=== PATIENT | female | born 1980 | race Caucasian/White ===

== ENCOUNTER 2019-11-01 17:14 | Inpatient (IN) | payer OTHER ==
[~2019-11-01] VITALS: Ht 172.7 cm; Wt 113.1 kg
[2019-11-01 19:04] LABS: BASOPHILS % (AUTO) 0.4 % (0.0-2.0); EOSINOPHILS % (AUTO) 0.4 % (1.0-6.0); HEMATOCRIT 38.6 % (36-46); HEMOGLOBIN 12.8 g/dL (12.0-16.0); MEAN CORPUSCULAR HGB CONC 33.1 G/dL (31.0-37.0); MEAN CORPUSCULAR VOLUME 82 fL (80-100); MONOCYTES # (AUTO) 0.8 K/uL (0.1-1.0); MONOCYTES % (AUTO) 7.5 % (2.0-9.0); NEUTROPHILS # (AUTO) 7.5 K/uL (1.8-7.7); NEUTROPHILS % (AUTO) 72.7 % (40.0-70.0); PLATELET COUNT (AUTO) 281 K/uL (150-450); RED BLOOD CELL COUNT(AUTO) 4.73 MIL/uL (4.00-5.20); RED CELL DISTRIBUTION WIDTH 14.3 % (11.5-14.5)
[2019-11-01 19:20] LABS: ANION GAP 11 mmol/L (8-16); CALCIUM, TOTAL 9.1 mg/dL (8.8-10.5); CARBON DIOXIDE 28 mmol/L (22-29); CHLORIDE 99 mmol/L (98-107); CREATININE 0.94 mg/dL (0.60-1.30); GLOMERULAR FILTR. RATE CALC > 60 mL/min (>60); GLUCOSE,RANDOM 105 mg/dL (70-110); POTASSIUM 3.3 mmol/L (3.5-5.1); SODIUM SERUM 138 mmol/L (136-145); UREA NITROGEN, BLOOD 12 mg/dL (7-18)
[2019-11-01 19:31] LABS: ALANINE AMINOTRANSFERASE 30 U/L (12-78); ALBUMIN 3.9 g/dL (3.4-5.0); ALKALINE PHOSPHATASE 83 U/L (46-116); ASPARTATE AMINOTRANSFERASE 25 U/L (15-37); BILIRUBIN,TOTAL 0.7 mg/dL (0.1-1.0); HCG,QUANTITATIVE < 1 mIU/mL (0-6); TOTAL PROTEIN, SERUM 8.4 g/dL (6.4-8.2)
[2019-11-01] MEDS ORDERED: ZOLPIDEM TARTRATE 10 MG TABLET PO PRN (19:45)
[2019-11-01] MEDS ORDERED: OLANZapine 5 MG RAPDIS TABLET PO PRN (19:45)
[2019-11-01] MEDS ORDERED: LORazepam 2 MG TABLET PO PRN (19:45)
[2019-11-01] MEDS ORDERED: POTASSIUM CHLORIDE 20 MEQ ER TABLET PO ONE (20:00)
[2019-11-01 21:47] LABS: APPEARANCE,URINE CLOUDY (CLEAR); GLUCOSE, URINE (UA) NEGATIVE (NEGATIVE); KETONES,URINE 40 mg/dL (NEGATIVE); LEUKOCYTE ESTERASE ,URINE NEGATIVE (NEGATIVE); NITRATE,URINE NEGATIVE (NEGATIVE); OCCULT BLOOD,URINE LARGE (NEGATIVE); PH,URINE 5.5 (5.0-8.0); PROTEIN,URINE TRACE (NEGATIVE)
[2019-11-01 21:53] LABS: AMPHET/METH SCREEN,URINE NEGATIVE (NEGATIVE); BARBITURATE SCREEN, URINE NEGATIVE (NEGATIVE); BENZODIAZEPINES SCREEN,URINE NEGATIVE (NEGATIVE); CANNABINOID SCREEN,URINE NEGATIVE (NEGATIVE); COCAINE SCREEN,URINE NEGATIVE (NEGATIVE); METHADONE SCREEN, URINE NEGATIVE (NEGATIVE); OPIATE SCREEN,URINE NEGATIVE (NEGATIVE)
[2019-11-01 21:55] LABS: PHENCYCLIDINE SCREEN,URINE NEGATIVE (NEGATIVE)
[2019-11-01 22:07] LABS: BILIRUBIN,URINE PRELIM. POSITIVE (NEGATIVE)
[2019-11-01 22:15] LABS: BACTERIA,URINE Few /HPF (None Seen); SQUAMOUS EPITHELIAL CELL,UR Few /LPF (None Seen); WBC,URINE 0-2 /HPF (0-5)
[2019-11-01] MEDS ORDERED: ACETAMINOPHEN 325 MG TABLET PO PRN (22:15)
[2019-11-01] MEDS ORDERED: 0.9% SODIUM CHLORIDE 10 ML SYRINGE IVP PRN (22:15)
[2019-11-01] MEDS ORDERED: ONDANSETRON HCL 4 MG/2 ML VIAL IVP PRN (22:15)
[2019-11-02 01:43] VITALS: BP 125/66
[2019-11-02 04:30] VITALS: BP 128/68
[2019-11-02 08:30] VITALS: BP 122/64
[2019-11-02] MEDS: BuPROPion HCL 150 MG SR TABLET PO SCH (10:56)
[2019-11-02] MEDS: HydrOXYzine PAMOATE 50 MG CAPSULE PO PRN ×2 (11:38→15:24)
[2019-11-02] MEDS ORDERED: ACETAMINOPHEN 325 MG TABLET PO PRN (12:15)
[2019-11-02 17:11] VITALS: BP 111/71
[2019-11-02 20:07] VITALS: BP 100/67
[2019-11-03 03:43] VITALS: BP 113/53
[2019-11-03] MEDS: HydrOXYzine PAMOATE 50 MG CAPSULE PO PRN ×2 (07:47→12:39)
[2019-11-03] MEDS: BuPROPion HCL 150 MG SR TABLET PO SCH (07:47)
[2019-11-03 08:03] VITALS: BP 109/68
== END 2019-11-03 14:00 | DRG 722 ==
LOC: EMS 17:15 → 6N 19:31
PROVIDERS: ADMIT Hospitalist; ATTEND Hospitalist
DX: R50.9 Fever, unspecified (principal); F33.2 Major depressive disorder, recurrent severe without psychotic features; R45.851 Suicidal ideations; Z20.828 Contact with and (suspected) exposure to other viral communicable diseases
CPT/HCPCS: G0480; 36415-L1; 36415-TC; 71045-TC; 87635; U0003-CS

== ENCOUNTER 2019-11-02 12:20 | Inpatient (IN) | payer MEDICAID ==
[2019-11-03] MEDS ORDERED: HydrOXYzine PAMOATE 50 MG CAPSULE PO PRN (11:45)
[2019-11-03 14:42] VITALS: BP 142/92
[2019-11-03 14:44] VITALS: BP 142/92
[2019-11-03] MEDS ORDERED: PNEUMOCOCCAL VACCINE POLYVALENT 0.5 ML VIAL [PPSV23] IM ONE (15:45)
[2019-11-03 16:38] VITALS: BP 129/77
[2019-11-03] MEDS: LORazepam 2 MG TABLET PO PRN (17:56)
[2019-11-03] MEDS: HALOPERIDOL 5 MG TABLET PO PRN (17:56)
[2019-11-04] MEDS ORDERED: NICOTINE 14 MG/24 HOUR PATCH TD PRN (06:45)
[2019-11-04] MEDS ORDERED: IBUPROFEN 400 MG TABLET PO PRN (06:45)
[2019-11-04] MEDS ORDERED: LOPERAMIDE HCL 2 MG CAPSULE PO PRN (06:45)
[2019-11-04] MEDS ORDERED: GuaiFENesin/D-METHORPHAN [SUGAR-FREE] 200-20MG/10 ML SYRUP UDCUP PO PRN (06:45)
[2019-11-04] MEDS ORDERED: ONDANSETRON HCL 4 MG TABLET PO PRN (06:45)
[2019-11-04] MEDS ORDERED: ACETAMINOPHEN 325 MG TABLET PO PRN (06:45)
[2019-11-04] MEDS ORDERED: CloNIDine HCL 0.1 MG TABLET PO PRN (06:45)
[2019-11-04] MEDS ORDERED: MAGNESIUM HYDROXIDE SUSPENSION 30 ML UDCUP PO PRN (06:45)
[2019-11-04] MEDS ORDERED: DOCUSATE SODIUM 100 MG CAPSULE PO PRN (06:45)
[2019-11-04] MEDS ORDERED: ALBUTEROL SULFATE HFA 90 MCG/PUFF 8 GM INHALER IH PRN (06:45)
[2019-11-04] MEDS ORDERED: PETROLATUM,WHITE 28 GM JELLY TP PRN (06:45)
[2019-11-04] MEDS ORDERED: MAG HYDROX/AL HYDROX/SIMETH ES 30 ML SUSPENSION UDCUP PO PRN (06:45)
[2019-11-04 08:00] VITALS: BP 118/72
[2019-11-04] MEDS: BuPROPion HCL 150 MG SR TABLET PO SCH (08:31)
[2019-11-04] MEDS: LORazepam 2 MG TABLET PO PRN ×2 (08:31→14:00)
[2019-11-04] MEDS: HALOPERIDOL 5 MG TABLET PO PRN ×2 (08:31→14:00)
[2019-11-04] MEDS ORDERED: POTASSIUM CHLORIDE 20 MEQ ER TABLET PO ONE (10:00)
[2019-11-04 16:00] VITALS: BP 104/66
[2019-11-05 08:00] VITALS: BP 126/70
[2019-11-05] MEDS: BuPROPion HCL 150 MG SR TABLET PO SCH (08:52)
[2019-11-05] MEDS ORDERED: POTASSIUM CHLORIDE 20 MEQ ER TABLET PO ONE (09:15)
[2019-11-05] MEDS: HALOPERIDOL 5 MG TABLET PO PRN (14:27)
[2019-11-05] MEDS: LORazepam 2 MG TABLET PO PRN (14:27)
[2019-11-05 16:59] VITALS: BP 102/60
[2019-11-06 08:03] LABS: POTASSIUM 3.3 mmol/L (3.5-5.1)
[2019-11-06] MEDS: BuPROPion HCL 150 MG SR TABLET PO SCH (09:02)
[2019-11-06 09:59] VITALS: BP 114/55
[2019-11-06 10:31] LABS: MAGNESIUM 1.2 mg/dL (1.80-2.40)
[2019-11-06] MEDS: HALOPERIDOL 5 MG TABLET PO PRN ×2 (12:22→17:55)
[2019-11-06] MEDS: LORazepam 2 MG TABLET PO PRN ×2 (12:22→17:55)
[2019-11-06] MEDS: MAGNESIUM OXIDE 400 MG TABLET PO SCH ×2 (13:58→16:22)
[2019-11-06 16:34] VITALS: BP 102/73
[2019-11-06] MEDS ORDERED: POTASSIUM CHLORIDE 10% 40 MEQ/30 ML LIQUID UDCUP PO ONE (21:30)
[2019-11-07 08:45] VITALS: BP 110/67
[2019-11-07] MEDS: BuPROPion HCL 150 MG SR TABLET PO SCH (09:19)
[2019-11-07] MEDS: MAGNESIUM OXIDE 400 MG TABLET PO SCH ×3 (09:19→17:46)
[2019-11-07 09:52] LABS: POTASSIUM 3.3 mmol/L (3.5-5.1)
[2019-11-07 10:29] LABS: MAGNESIUM 1.2 mg/dL (1.80-2.40)
[2019-11-07] MEDS ORDERED: POTASSIUM CHLORIDE 20 MEQ ER TABLET PO ONE (10:45)
[2019-11-07 16:00] VITALS: BP 100/60
[2019-11-07] MEDS: LORazepam 2 MG TABLET PO PRN (17:46)
[2019-11-07] MEDS: HALOPERIDOL 5 MG TABLET PO PRN (17:46)
[2019-11-08 07:53] LABS: MAGNESIUM 1.4 mg/dL (1.80-2.40); POTASSIUM 3.4 mmol/L (3.5-5.1)
[2019-11-08] MEDS: BuPROPion HCL 150 MG SR TABLET PO SCH (09:05)
[2019-11-08] MEDS: MAGNESIUM OXIDE 400 MG TABLET PO SCH ×3 (09:05→16:24)
[2019-11-08 12:31] VITALS: BP 141/79
[2019-11-08] MEDS ORDERED: POTASSIUM CHLORIDE 20 MEQ ER TABLET PO ONE (13:00)
[2019-11-08 16:12] VITALS: BP 90/65
[2019-11-08] MEDS: LORazepam 2 MG TABLET PO PRN (17:10)
[2019-11-08] MEDS: HALOPERIDOL 5 MG TABLET PO PRN (18:04)
[2019-11-08] MEDS: ZOLPIDEM TARTRATE 10 MG TABLET PO PRN (21:02)
[2019-11-09 02:09] VITALS: BP 121/85
[2019-11-09] MEDS: BuPROPion HCL 150 MG SR TABLET PO SCH (08:35)
[2019-11-09] MEDS: MULTIVITAMINS WITH MINERALS, THERAPEUTIC TABLET PO SCH (08:36)
[2019-11-09] MEDS: MAGNESIUM OXIDE 400 MG TABLET PO SCH ×3 (08:36→16:27)
[2019-11-09 08:56] VITALS: BP 106/73
[2019-11-09] MEDS: LORazepam 2 MG TABLET PO PRN (15:49)
[2019-11-09] MEDS: HALOPERIDOL 5 MG TABLET PO PRN (15:49)
[2019-11-09 16:30] VITALS: BP 107/69
[2019-11-09] MEDS: ZOLPIDEM TARTRATE 10 MG TABLET PO PRN (21:06)
[2019-11-10] MEDS: MULTIVITAMINS WITH MINERALS, THERAPEUTIC TABLET PO SCH (07:58)
[2019-11-10] MEDS: BuPROPion HCL 150 MG SR TABLET PO SCH (07:58)
[2019-11-10] MEDS: MAGNESIUM OXIDE 400 MG TABLET PO SCH ×3 (07:58→16:15)
[2019-11-10 09:41] VITALS: BP 134/87
[2019-11-10 13:47] LABS: MAGNESIUM 1.7 mg/dL (1.80-2.40); PHOSPHORUS 3.2 mg/dL (2.5-4.9); POTASSIUM 3.8 mmol/L (3.5-5.1)
[2019-11-10 16:01] VITALS: BP 108/71
[2019-11-10] MEDS: LORazepam 2 MG TABLET PO PRN (17:46)
[2019-11-10] MEDS: HALOPERIDOL 5 MG TABLET PO PRN (17:46)
[2019-11-11 07:47] LABS: MAGNESIUM 1.6 mg/dL (1.80-2.40); POTASSIUM 3.8 mmol/L (3.5-5.1)
[2019-11-11 08:00] VITALS: BP 108/84
[2019-11-11] MEDS: MULTIVITAMINS WITH MINERALS, THERAPEUTIC TABLET PO SCH (08:46)
[2019-11-11] MEDS: MAGNESIUM OXIDE 400 MG TABLET PO SCH (08:46)
[2019-11-11] MEDS: BuPROPion HCL 150 MG SR TABLET PO SCH (08:46)
[2019-11-11] MEDS: LORazepam 2 MG TABLET PO PRN (12:40)
[2019-11-11] MEDS: HALOPERIDOL 5 MG TABLET PO PRN (12:40)
[2019-11-11 16:00] VITALS: BP 93/60
[2019-11-11] MEDS: ZOLPIDEM TARTRATE 10 MG TABLET PO PRN (22:33)
[2019-11-12] MEDS: BuPROPion HCL 150 MG SR TABLET PO SCH (09:06)
[2019-11-12] MEDS: MULTIVITAMINS WITH MINERALS, THERAPEUTIC TABLET PO SCH (09:06)
[2019-11-12 10:44] VITALS: BP 104/59
[2019-11-12] MEDS: LORazepam 2 MG TABLET PO PRN (14:51)
[2019-11-12] MEDS: HALOPERIDOL 5 MG TABLET PO PRN (14:51)
[2019-11-12 16:00] VITALS: BP 109/64
[2019-11-12] MEDS ORDERED: BUPR150SR PO (18:40)
[2019-11-14] MEDS ORDERED: MAGOX PO (08:21)
[2019-11-14] MEDS ORDERED: BUSP10TA23 PO (08:21)
[2019-11-14] MEDS ORDERED: POTA20TA83 PO (08:21)
[2019-11-14] MEDS ORDERED: MELA5TAB3 PO (08:21)
== END 2019-11-12 21:00 | disposition home or self-care (01) | DRG 885 ==
LOC: PREINTOOBSV 12:22 → 3EI 11-03 12:09 → EDSTATUS 11-03 15:17
PROVIDERS: ADMIT Psychiatry & Neurology Child & Adolescent Psychiatry; ATTEND Psychiatry & Neurology Child & Adolescent Psychiatry
DX: F33.2 Major depressive disorder, recurrent severe without psychotic features (principal); R45.851 Suicidal ideations; E87.6 Hypokalemia; E83.42 Hypomagnesemia; F41.1 Generalized anxiety disorder; Z59.0 Homelessness
CPT/HCPCS: 83735; 84100; 84132; 87081; 90732; 93005